=== PATIENT | male | born 1975 | race Two or more races ===

== ENCOUNTER 2021-05-25 23:34 | Emergency (ER) | payer OTHER ==
[~2021-05-25] VITALS: Ht 190.5 cm; Wt 191.0 kg
== END 2021-05-26 01:45 | disposition home or self-care (01) ==
LOC: ER 23:34
DX: S00.83XA Contusion of other part of head, initial encounter (principal); J44.9 Chronic obstructive pulmonary disease, unspecified; I10 Essential (primary) hypertension; Z88.0 Allergy status to penicillin; Z88.1 Allergy status to other antibiotic agents; V49.50XA Passenger injured in collision with unspecified motor vehicles in traffic accident, initial encounter; Y92.410 Unspecified street and highway as the place of occurrence of the external cause
CPT/HCPCS: 70450; 70486; 72125; 99284-25; A9270